=== PATIENT | male | born 1970 | race Two or more races ===

== ENCOUNTER 2020-03-07 11:18 | Inpatient (IN) | payer BC ==
[~2020-03-07] VITALS: Ht 182.9 cm; Wt 162.8 kg
[2020-03-07] MEDS ORDERED: KETOROLAC 30MG/ML VIAL IV STA (11:29)
[2020-03-07] MEDS ORDERED: DEXAMETHASONE 4MG/ML 1ML VIAL IV ONE (11:30)
[2020-03-07 11:59] LABS: BASOPHILS % 0.3 % (0.0-2.0); HEMATOCRIT. 41.2 % (42.0-52.0); HEMOGLOBIN. 13.5 g/dL (14.0-18.0); LYMPHOCYTES % 7.2 % (20.0-50.0); MEAN CORPUSCULAR HEMOGLOBIN 29.5 pg (28.0-32.0); MEAN CORPUSCULAR VOLUME 89.6 fL (80.0-94.0); MONOCYTES % 9.8 % (2.0-8.0); NEUTROPHILS % 82.7 % (40.0-76.0); PLATELET 182 x1000/uL (130-400); RED BLOOD CELL COUNT 4.59 mill/uL (4.7-6.1); RED CELL DISTRIBUTION WIDTH 13.8 % (11.6-14.6)
[2020-03-07 12:04] LABS: CHLORIDE 95 mEq/L (98-107)
[2020-03-07] MEDS: AZITHROMYCIN 500 MG in DEXT 5% WATER 250 ML IV SCH (13:03)
[2020-03-07] MEDS ORDERED: DOCUSATE SODIUM 100MG CAPSULE PO PRN (19:45)
[2020-03-07] MEDS ORDERED: MAGNESIUM/ALUMINUM HYDROXIDE/SIMETHICONE 30ML UDC PO PRN (19:45)
[2020-03-07] MEDS ORDERED: ONDANSETRON HCL 4MG/2ML INJ IV PRN (19:45)
[2020-03-07] MEDS ORDERED: CLONIDINE 0.1MG TABLET PO PRN (19:45)
[2020-03-07] MEDS ORDERED: DEXTROSE 50% WATER 50ML SYRINGE IV PRN (19:45)
[2020-03-07] MEDS ORDERED: ACETAMINOPHEN 325MG TABLET PO PRN (19:45)
[2020-03-07] MEDS ORDERED: AZITHROMYCIN 500 MG in DEXT 5% WATER 250 ML IV SCH (19:45)
[2020-03-07] MEDS ORDERED: DIPHENHYDRAMINE 50MG/ML VIAL IV PRN (19:45)
[2020-03-07] MEDS ORDERED: ALBUTEROL 6.7GM HFA INHALER ORI PRN (19:45)
[2020-03-07] MEDS ORDERED: MORPHINE SULFATE 2 MG/ML CPJ (NOT FOR IM USE) IV PRN (19:45)
[2020-03-07] MEDS ORDERED: GUAIFENESIN 200MG/10ML SUGAR FREE UDC PO PRN (19:45)
[2020-03-07] MEDS: BLOOD SUGAR DIAGNOSTIC STRIP TEST SCH (20:21)
[2020-03-07] MEDS: SODIUM CHLORIDE 0.9% INJ 3ML FLUSH IVF SCH (20:39)
[2020-03-07] MEDS: INSULIN LISPRO 100 UNITS/ML SUBCUT SCH (20:39)
[2020-03-07] MEDS: ENOXAPARIN 30MG/0.3ML SYR SUBCUT SCH (20:39)
[2020-03-07] MEDS: CEFTRIAXONE 1 G PREMIX 50 ML IV SCH (23:00)
[2020-03-08 03:42] LABS: BG BASE EXCESS -1.3 mmol/L (-2.0-2.0); BG CARBOXYHEMOGLOBIN 0.9 % (0.5-1.5); BG DEOXYHEMOGLOBIN 10.5 % (0.0-5.0); BG FRACTION INSPIRED OXYGEN 100; BG HCO3 ACT 24.8 mmol/L (22.0-26.0); BG METHEMOGLOBIN 0.3 % (0.0-1.5); BG OXYGEN SATURATION 89.4 % (92.0-98.5); BG OXYHEMOGLOBIN 88.3 % (94.0-97.0); BG PCO2 47.3 mmHg (35.0-45.0); BG PH 7.338 (7.350-7.450); BG PO2 60.4 mmHg (75.0-100.0); BG TOTAL HEMOGLOBIN 13.3 g/dL (12.0-18.0); BG VENT MODE MASK - BIPAP
[2020-03-08] MEDS: BLOOD SUGAR DIAGNOSTIC STRIP TEST SCH ×4 (06:11→21:00)
[2020-03-08] MEDS: SODIUM CHLORIDE 0.9% INJ 3ML FLUSH IVF SCH ×3 (06:11→22:00)
[2020-03-08 06:49] LABS: HEMATOCRIT. 39.9 % (42.0-52.0); HEMOGLOBIN. 13.5 g/dL (14.0-18.0); MEAN CORPUSCULAR HEMOGLOBIN 29.7 pg (28.0-32.0); PLATELET 191 x1000/uL (130-400); RED BLOOD CELL COUNT 4.54 mill/uL (4.7-6.1)
[2020-03-08 06:53] LABS: CHLORIDE 99 mEq/L (98-107)
[2020-03-08] MEDS: INSULIN LISPRO 100 UNITS/ML SUBCUT SCH ×4 (07:03→23:10)
[2020-03-08] MEDS: DEXAMETHASONE 10 MG/ML VIAL IV SCH (09:00)
[2020-03-08] MEDS: ENOXAPARIN 30MG/0.3ML SYR SUBCUT SCH ×2 (09:18→23:11)
[2020-03-08] MEDS: HYDROCODONE/ACETAMINOPHEN 5/325MG TABLET PO PRN (09:18)
[2020-03-08 09:43] LABS: ATYPICAL LYMPHOCYTES 2
[2020-03-08 09:44] LABS: PLATELET ESTIMATE NORMAL
[2020-03-08] MEDS: INSULIN GLARGINE UD 100 UNITS/ML SYR SUBCUT SCH (10:37)
[2020-03-08] MEDS: AZITHROMYCIN 500 MG in DEXT 5% WATER 250 ML IV SCH (10:38)
[2020-03-08 11:28] LABS: T4 FREE 1.37 ng/dL (0.76-1.46)
[2020-03-08] MEDS ORDERED: ERGOCALCIFEROL 50000UNITS CAPSULE PO SCH (15:02)
[2020-03-08 16:25] LABS: BG BASE EXCESS 1.3 mmol/L (-2.0-2.0); BG CARBOXYHEMOGLOBIN 0.9 % (0.5-1.5); BG DEOXYHEMOGLOBIN 7.7 % (0.0-5.0); BG HCO3 ACT 26.6 mmol/L (22.0-26.0); BG METHEMOGLOBIN 0.3 % (0.0-1.5); BG OXYGEN SATURATION 92.2 % (92.0-98.5); BG OXYHEMOGLOBIN 91.1 % (94.0-97.0); BG PCO2 44.6 mmHg (35.0-45.0); BG PH 7.393 (7.350-7.450); BG PO2 65.2 mmHg (75.0-100.0); BG SAMPLE SITE RIGHT RADIAL; BG TOTAL HEMOGLOBIN 13.9 g/dL (12.0-18.0); BG TOTAL RESPIRATORY RATE 41 b/min; BG VENT MODE MASK - BIPAP
[2020-03-08] MEDS: ASCORBIC ACID 500 MG TABLET PO SCH (23:10)
[2020-03-08] MEDS: CEFTRIAXONE 1 G PREMIX 50 ML IV SCH (23:11)
[2020-03-09 04:00] VITALS: BP 131/71
[2020-03-09] MEDS: BLOOD SUGAR DIAGNOSTIC STRIP TEST SCH ×4 (06:41→20:27)
[2020-03-09] MEDS: SODIUM CHLORIDE 0.9% INJ 3ML FLUSH IVF SCH ×3 (06:42→20:28)
[2020-03-09 08:00] VITALS: BP 173/75
[2020-03-09] MEDS: ASCORBIC ACID 500 MG TABLET PO SCH ×2 (08:34→20:27)
[2020-03-09] MEDS: DEXAMETHASONE 10 MG/ML VIAL IV SCH (08:34)
[2020-03-09] MEDS: ENOXAPARIN 30MG/0.3ML SYR SUBCUT SCH (08:35)
[2020-03-09] MEDS: INSULIN LISPRO 100 UNITS/ML SUBCUT SCH ×4 (08:36→20:27)
[2020-03-09] MEDS: HYDROCODONE/ACETAMINOPHEN 5/325MG TABLET PO PRN ×2 (09:05→22:34)
[2020-03-09] MEDS: INSULIN GLARGINE UD 100 UNITS/ML SYR SUBCUT SCH (09:34)
[2020-03-09 11:22] LABS: BG BASE EXCESS 2.6 mmol/L (-2.0-2.0); BG CARBOXYHEMOGLOBIN 1.1 % (0.5-1.5); BG DEOXYHEMOGLOBIN 19.2 % (0.0-5.0); BG HCO3 ACT 27.5 mmol/L (22.0-26.0); BG METHEMOGLOBIN 0.3 % (0.0-1.5); BG OXYGEN SATURATION 80.5 % (92.0-98.5); BG OXYHEMOGLOBIN 79.4 % (94.0-97.0); BG PCO2 43.6 mmHg (35.0-45.0); BG PH 7.418 (7.350-7.450); BG PO2 45.5 mmHg (75.0-100.0); BG SAMPLE SITE RIGHT RADIAL; BG VENT MODE MASK - BIPAP
[2020-03-09 12:00] VITALS: BP 157/86
[2020-03-09] MEDS: AZITHROMYCIN 500 MG in DEXT 5% WATER 250 ML IV SCH (14:19)
[2020-03-09 15:48] LABS: CREATINE KINASE MB FRACTION 2.1 ng/mL (0.5-3.6)
[2020-03-09 16:00] VITALS: BP 129/66
[2020-03-09 20:00] VITALS: BP 133/70
[2020-03-09] MEDS: CEFTRIAXONE 1,000 MG in DEXTROSE 5% WATER 50 ML IV SCH (20:27)
[2020-03-09] MEDS: ENOXAPARIN 40MG/0.4ML SYR SUBCUT SCH (20:27)
[2020-03-10] VITALS: BP 136/57
[2020-03-10 04:00] VITALS: BP 135/67
[2020-03-10] MEDS: INSULIN LISPRO 100 UNITS/ML SUBCUT SCH ×4 (06:10→21:31)
[2020-03-10] MEDS: BLOOD SUGAR DIAGNOSTIC STRIP TEST SCH ×4 (06:10→21:29)
[2020-03-10] MEDS: SODIUM CHLORIDE 0.9% INJ 3ML FLUSH IVF SCH ×3 (06:10→21:28)
[2020-03-10 08:00] VITALS: BP 117/64
[2020-03-10] MEDS: AZITHROMYCIN 500 MG in DEXT 5% WATER 250 ML IV SCH (09:52)
[2020-03-10] MEDS: DEXAMETHASONE 10 MG/ML VIAL IV SCH (09:52)
[2020-03-10] MEDS: INSULIN GLARGINE UD 100 UNITS/ML SYR SUBCUT SCH (10:30)
[2020-03-10] MEDS: ASCORBIC ACID 500 MG TABLET PO SCH ×2 (11:06→21:29)
[2020-03-10] MEDS: ENOXAPARIN 40MG/0.4ML SYR SUBCUT SCH ×2 (11:06→21:29)
[2020-03-10 12:42] VITALS: BP 135/72
[2020-03-10] MEDS: HYDROCODONE/ACETAMINOPHEN 5/325MG TABLET PO PRN (13:18)
[2020-03-10 17:12] VITALS: BP 129/71
[2020-03-10 20:00] VITALS: BP 118/67
[2020-03-10] MEDS: CEFTRIAXONE 1,000 MG in DEXTROSE 5% WATER 50 ML IV SCH (21:28)
[2020-03-11] MEDS: LORAZEPAM 2MG/ML CPJ IV PRN ×2 (00:54→04:01)
[2020-03-11 04:07] LABS: BG BASE EXCESS -1.8 mmol/L (-2.0-2.0); BG CARBOXYHEMOGLOBIN 0.6 % (0.5-1.5); BG DEOXYHEMOGLOBIN 26.6 % (0.0-5.0); BG FRACTION INSPIRED OXYGEN 100; BG HCO3 ACT 22.7 mmol/L (22.0-26.0); BG METHEMOGLOBIN 0.5 % (0.0-1.5); BG OXYGEN SATURATION 73.1 % (92.0-98.5); BG OXYHEMOGLOBIN 72.3 % (94.0-97.0); BG PCO2 38.2 mmHg (35.0-45.0); BG PH 7.392 (7.350-7.450); BG PO2 40.8 mmHg (75.0-100.0); BG TOTAL HEMOGLOBIN 14.9 g/dL (12.0-18.0); BG VENT MODE MASK - BIPAP
== END 2020-03-11 04:57 | disposition expired | DRG 871 ==
LOC: ER 11:18 → MICUSO 15:16 → 7EST 03-08 08:13 → MICUSO 03-08 08:25 → 7EST 03-08 22:41 → CVICU 03-11 04:30
PROVIDERS: ADMIT Internal Medicine; ATTEND Internal Medicine
PROC: 5A09457 Assistance with Respiratory Ventilation, 24-96 Consecutive Hours, Continuous Positive Airway Pressure (ICD-10-PCS; principal; 2020-03-08)
DX: A41.89 Other specified sepsis (principal); U07.1 COVID-19; J96.01 Acute respiratory failure with hypoxia; J12.82 Pneumonia due to coronavirus disease 2019; E46 Unspecified protein-calorie malnutrition; Z68.42 Body mass index [BMI] 45.0-49.9, adult; B97.89 Other viral agents as the cause of diseases classified elsewhere; E11.9 Type 2 diabetes mellitus without complications; E66.01 Morbid (severe) obesity due to excess calories; Z79.899 Other long term (current) drug therapy
CPT/HCPCS: 36415; 36600; 71045; 80053; 80061; 82375; 82550; 82553; 82805; 82962; 83036; 83605; 83880; 84439; 84443; 84484; 85025; 85379; 87426; 87804; 93005; 93970; 99291; J0456; J0696; J1100; J1650; J1815; J1885; J2060; J7060; A4315